=== PATIENT | male | born 1940 | race Caucasian/White ===

== ENCOUNTER 2023-01-14 08:02 | Inpatient (IN) | payer MEDICARE ==
[2023-01-14] VITALS (7 sets, daily range): BP systolic 117–139; BP diastolic 68–89; PULSE 70–84; RESP 16–20; TEMP 98–99.1; O2SAT 96–99
[~2023-01-14] VITALS: Ht 180.3 cm; Wt 78.5 kg
[2023-01-14] MEDS: FENTANYL CITRATE/PF 100MCG/2 ML INJ IV PRN ×2 (08:27→11:20)
[2023-01-14] MEDS ORDERED: DONNATAL/LIDOCAINE/MAALOX 30 ML SUSP PO STA (08:30)
[2023-01-14 08:32] LABS: BASOPHILS % 0.4 % (0.0-1.0); EOSINOPHILS # (AUTO) 0.1 (0.0-0.4); EOSINOPHILS % 0.9 % (0.0-6.0); HEMATOCRIT 42.4 % (38.2-49.6); HEMOGLOBIN 14.6 g/dL (14.0-18.0); LYMPHOCYTES % 12.5 % (18.0-39.1); MEAN CORPUSCULAR HEMOGLOBIN 32.2 pg (28-32); MEAN CORPUSCULAR HGB CONC 34.4 g/dL (31-35); MEAN CORPUSCULAR VOLUME 93.6 fL (81-99); MONOCYTES # (AUTO) 0.4 (0.2-0.8); MONOCYTES % 5.3 % (4.4-11.3); NEUTROPHILS # (AUTO) 6.3 (2.1-6.9); NEUTROPHILS % 80.8 % (38.7-80.0); PLATELET COUNT 147 x10e3/uL (140-360); RED BLOOD COUNT 4.53 x10e6/uL (4.3-5.7); RED CELL DISTRIBUTION WIDTH 12.7 % (11.7-14.4)
[2023-01-14 08:46] LABS: ALBUMIN 4.6 g/dL (3.5-5.0); ALBUMIN/GLOBULIN RATIO 1.4 (0.8-2.0); ANION GAP 13.7 mmol/L (8-16); CALCIUM 10.5 mg/dL (8.4-10.2); CREATININE, SERUM 0.88 mg/dL (0.72-1.25); POTASSIUM 3.7 mmol/L (3.5-5.1)
[2023-01-14] MEDS ORDERED: IOPAMIDOL 370 MG/ML 100 ML INFUS..BTL INJ ONE (08:58)
[2023-01-14] MEDS ORDERED: LIDOCAINE VISC 2% SOLN 15 ML UDC ONE (09:34)
[2023-01-14] MEDS ORDERED: BELLADONNA ALK/PHENOBARBITAL 5 ML UDC ONE (09:34)
[2023-01-14] MEDS ORDERED: MAGNESIUM/ALUMINUM/SIMETHICONE 30 ML UDC ONE (09:34)
[2023-01-14] MEDS ORDERED: ASPIRIN 81 MG CHEW TAB PO ONE (10:30)
[2023-01-14] MEDS ORDERED: METRONIDAZOLE 750MG/NS 150ML 150 ML IV ONE (10:30)
[2023-01-14] MEDS: SODIUM CHLORIDE 0.9% 1000ML 1,000 ML IV SCH ×2 (10:46→16:46)
[2023-01-14] MEDS ORDERED: CELEBREX200 MG PO (10:56)
[2023-01-14] MEDS ORDERED: NAMENDA5 MG PO (10:57)
[2023-01-14] MEDS ORDERED: OMEPRAZOLE40 MG PO (10:59)
[2023-01-14] MEDS ORDERED: WARFARIN SODIUM5 MG PO (11:00)
[2023-01-14] MEDS ORDERED: TRIAMTERENE-HCTZ1 EA PO (11:01)
[2023-01-14] MEDS ORDERED: FLOMAX0.4 MG PO (11:02)
[2023-01-14 11:13] LABS: CREATINE KINASE MB 3.7 ng/mL (0-5.0)
[2023-01-14 11:17] LABS: INR 1.8; PROTHROMBIN TIME 21.4 seconds (11.9-14.5)
[2023-01-14] MEDS: ONDANSETRON HCL INJ 2MG/ML 2ML 2 MG/ML VIAL IV PRN ×2 (14:01→22:08)
[2023-01-14] MEDS: Morphine 4mg INJECTION 4 MG/ML INJ IV PRN ×3 (14:01→22:08)
[2023-01-15] VITALS (10 sets, daily range): BP systolic 112–142; BP diastolic 60–92; PULSE 66–83; RESP 18–21; TEMP 97.9–100.9; O2SAT 93–99
[2023-01-15] MEDS: SODIUM CHLORIDE 0.9% 1000ML 1,000 ML IV SCH ×3 (00:26→16:45)
[2023-01-15 05:47] LABS: BASOPHILS % 0.1 % (0.0-1.0); HEMATOCRIT 37.9 % (38.2-49.6); HEMOGLOBIN 13.3 g/dL (14.0-18.0); LYMPHOCYTES # (AUTO) 0.7 (1.0-3.2); LYMPHOCYTES % 6.2 % (18.0-39.1); MEAN CORPUSCULAR HEMOGLOBIN 32.4 pg (28-32); MEAN CORPUSCULAR HGB CONC 35.1 g/dL (31-35); MEAN CORPUSCULAR VOLUME 92.2 fL (81-99); MONOCYTES # (AUTO) 0.9 (0.2-0.8); MONOCYTES % 7.7 % (4.4-11.3); NEUTROPHILS # (AUTO) 10.1 (2.1-6.9); NEUTROPHILS % 85.7 % (38.7-80.0); PLATELET COUNT 99 x10e3/uL (140-360); RED BLOOD COUNT 4.11 x10e6/uL (4.3-5.7); RED CELL DISTRIBUTION WIDTH 12.5 % (11.7-14.4)
[2023-01-15 05:49] LABS: ANION GAP 11.1 mmol/L (8-16); CALCIUM 9.3 mg/dL (8.4-10.2); CREATININE, SERUM 0.73 mg/dL (0.72-1.25); POTASSIUM 4.1 mmol/L (3.5-5.1)
[2023-01-15 06:26] LABS: ALBUMIN 3.5 g/dL (3.5-5.0)
[2023-01-15 06:45] LABS: CREATINE KINASE MB 1.1 ng/mL (0-5.0)
[2023-01-15 07:56] LABS: INR 2.76; PROTHROMBIN TIME 29.6 seconds (11.9-14.5)
[2023-01-15] MEDS: TAMSULOSIN HCL 0.4 MG CAP PO SCH (09:05)
[2023-01-15] MEDS: MEMANTINE 10 MG TAB PO SCH (09:06)
[2023-01-15] MEDS: PANTOPRAZOLE SOD 40 MG TABEC PO SCH (09:06)
[2023-01-15] MEDS ORDERED: PHYTONADIONE 10 MG/ML AMP SQ ONE (09:15)
[2023-01-15] MEDS: Morphine 4mg INJECTION 4 MG/ML INJ IV PRN (13:37)
[2023-01-15] MEDS ORDERED: SODIUM CHLORIDE 0.9% 250ML 250 ML ONE (17:17)
[2023-01-16] VITALS (10 sets, daily range): BP systolic 126–164; BP diastolic 67–86; PULSE 61–96; RESP 18–21; TEMP 97.2–99.2; O2SAT 92–99
[2023-01-16] MEDS: SODIUM CHLORIDE 0.9% 1000ML 1,000 ML IV SCH ×2 (04:54→16:03)
[2023-01-16] MEDS: Morphine 4mg INJECTION 4 MG/ML INJ IV PRN ×2 (04:59→15:40)
[2023-01-16 06:00] LABS: BASOPHILS % 0.2 % (0.0-1.0); EOSINOPHILS % 0.1 % (0.0-6.0); HEMATOCRIT 36.3 % (38.2-49.6); HEMOGLOBIN 12.3 g/dL (14.0-18.0); LYMPHOCYTES # (AUTO) 0.9 (1.0-3.2); LYMPHOCYTES % 9.7 % (18.0-39.1); MEAN CORPUSCULAR HGB CONC 33.9 g/dL (31-35); MEAN CORPUSCULAR VOLUME 94.5 fL (81-99); MONOCYTES # (AUTO) 0.9 (0.2-0.8); MONOCYTES % 9.3 % (4.4-11.3); NEUTROPHILS # (AUTO) 7.7 (2.1-6.9); NEUTROPHILS % 80.2 % (38.7-80.0); PLATELET COUNT 110 x10e3/uL (140-360); RED BLOOD COUNT 3.84 x10e6/uL (4.3-5.7); RED CELL DISTRIBUTION WIDTH 12.7 % (11.7-14.4)
[2023-01-16 06:02] LABS: INR 1.57; PROTHROMBIN TIME 19.3 seconds (11.9-14.5)
[2023-01-16 06:17] LABS: CALCIUM 9.3 mg/dL (8.4-10.2); CREATININE, SERUM 0.73 mg/dL (0.72-1.25)
[2023-01-16] MEDS: MEMANTINE 10 MG TAB PO SCH ×2 (08:54→15:39)
[2023-01-16] MEDS: TAMSULOSIN HCL 0.4 MG CAP PO SCH ×2 (08:55→15:39)
[2023-01-16] MEDS: PANTOPRAZOLE SOD 40 MG TABEC PO SCH ×2 (08:55→15:39)
[2023-01-16] MEDS ORDERED: ACETAMINOPHEN 1000 MG/100 ML 0 ML IV ONE (10:30)
[2023-01-16] MEDS ORDERED: BUPIVACAINE 0.25% 30ML SDV ONE (11:50)
[2023-01-16] MEDS ORDERED: FENTANYL CITRATE/PF 100MCG/2 ML INJ ONE (12:20)
[2023-01-16] MEDS ORDERED: ONDANSETRON HCL INJ 2MG/ML 2ML 2 MG/ML VIAL IV PRN (13:00)
[2023-01-16] MEDS ORDERED: SEVOFLURANE INHAL SOLN 250 ML PEN BTL ONE (13:53)
[2023-01-16] MEDS ORDERED: POVIDONE IODINE 0.05% 0.05 % ML PO ONE (13:53)
[2023-01-16] MEDS ORDERED: ROCURONIUM BROMIDE 10 MG/ML 5ML VIAL IV ONE (13:53)
[2023-01-16] MEDS ORDERED: PROPOFOL IV EMULSION 10 MG/ML 20 ML VIAL ONE (13:53)
[2023-01-16] MEDS ORDERED: LABETALOL HCL 5 MG/ML 20ML VIAL ONE (13:53)
[2023-01-16] MEDS ORDERED: ONDANSETRON HCL INJ 2MG/ML 2ML 2 MG/ML VIAL ONE (13:53)
[2023-01-16] MEDS ORDERED: LIDOCAINE HCL 2% LOCAL INJ 5 ML SDV VIAL INJ ONE (13:53)
[2023-01-16] MEDS ORDERED: DEXAMETHASONE SOD PHOS INJ 4 MG/ML SDV ONE (13:53)
[2023-01-17] VITALS (10 sets, daily range): BP systolic 116–147; BP diastolic 54–81; PULSE 65–85; RESP 17–22; TEMP 97.8–99.5; O2SAT 91–98
[2023-01-17] MEDS: SODIUM CHLORIDE 0.9% 1000ML 1,000 ML IV SCH ×2 (02:44→21:04)
[2023-01-17 05:02] LABS: BASOPHILS % 0.1 % (0.0-1.0); HEMATOCRIT 32.9 % (38.2-49.6); HEMOGLOBIN 11.2 g/dL (14.0-18.0); LYMPHOCYTES # (AUTO) 0.8 (1.0-3.2); LYMPHOCYTES % 7.6 % (18.0-39.1); MEAN CORPUSCULAR HEMOGLOBIN 32.3 pg (28-32); MEAN CORPUSCULAR VOLUME 94.8 fL (81-99); MONOCYTES % 10.4 % (4.4-11.3); NEUTROPHILS # (AUTO) 8.2 (2.1-6.9); NEUTROPHILS % 81.3 % (38.7-80.0); PLATELET COUNT 91 x10e3/uL (140-360); RED BLOOD COUNT 3.47 x10e6/uL (4.3-5.7); RED CELL DISTRIBUTION WIDTH 12.5 % (11.7-14.4)
[2023-01-17 05:29] LABS: ALBUMIN 2.8 g/dL (3.5-5.0); ANION GAP 9.4 mmol/L (8-16); CALCIUM 8.8 mg/dL (8.4-10.2); CREATININE, SERUM 0.74 mg/dL (0.72-1.25); POTASSIUM 3.4 mmol/L (3.5-5.1)
[2023-01-17] MEDS: PANTOPRAZOLE SOD 40 MG TABEC PO SCH (09:35)
[2023-01-17] MEDS: MEMANTINE 10 MG TAB PO SCH (09:35)
[2023-01-17] MEDS: TAMSULOSIN HCL 0.4 MG CAP PO SCH (09:37)
[2023-01-17] MEDS ORDERED: ONDANSETRON HCL 4 MG ORAL DISINTEGRATING TAB PO PRN (11:15)
[2023-01-17] MEDS ORDERED: POTASSIUM CHLORIDE 20 MEQ TAB CR PO ONE ×2 (12:00→16:30)
[2023-01-17] MEDS: TRAMADOL HCL 50 MG TAB PO PRN (16:26)
[2023-01-18] VITALS (10 sets, daily range): BP systolic 131–136; BP diastolic 63–74; PULSE 59–83; RESP 16–20; TEMP 97.4–99; O2SAT 92–96
[2023-01-18] MEDS: SODIUM CHLORIDE 0.9% 1000ML 1,000 ML IV SCH ×2 (05:18→13:17)
[2023-01-18 05:44] LABS: HEMATOCRIT 37.3 % (38.2-49.6); HEMOGLOBIN 11.9 g/dL (14.0-18.0); MEAN CORPUSCULAR HEMOGLOBIN 32.4 pg (28-32); MEAN CORPUSCULAR HGB CONC 31.9 g/dL (31-35); MEAN CORPUSCULAR VOLUME 101.6 fL (81-99); PLATELET COUNT 115 x10e3/uL (140-360); RED BLOOD COUNT 3.67 x10e6/uL (4.3-5.7); RED CELL DISTRIBUTION WIDTH 12.7 % (11.7-14.4)
[2023-01-18 06:08] LABS: ALBUMIN 2.8 g/dL (3.5-5.0); ALBUMIN/GLOBULIN RATIO 0.9 (0.8-2.0); ANION GAP 10.4 mmol/L (8-16); CALCIUM 8.8 mg/dL (8.4-10.2); CREATININE, SERUM 0.65 mg/dL (0.72-1.25); POTASSIUM 3.4 mmol/L (3.5-5.1)
[2023-01-18 07:10] LABS: EOSINOPHILS % (MANUAL) 1 % (0-7); LYMPHOCYTES % (MANUAL) 15 % (19-48); MONOCYTES % (MANUAL) 6 % (3.4-9.0); NEUTROPHILS % (MANUAL) 78 % (40-74)
[2023-01-18 07:11] LABS: PLATELET ESTIMATE SLIGHTLY DECREASED; PLATELET MORPHOLOGY COMMENT NORMAL; RBC MORPHOLOGY COMMENT NORMAL
[2023-01-18] MEDS ORDERED: POTASSIUM CHLORIDE 20 MEQ TAB CR PO ONE (09:45)
[2023-01-18] MEDS: MEMANTINE 10 MG TAB PO SCH (09:46)
[2023-01-18] MEDS: PANTOPRAZOLE SOD 40 MG TABEC PO SCH (09:46)
[2023-01-18] MEDS: TAMSULOSIN HCL 0.4 MG CAP PO SCH (09:46)
[2023-01-18] MEDS: TRAMADOL HCL 50 MG TAB PO PRN (15:03)
[2023-01-19 00:56] VITALS: BP 144/64; PULSE 90; RESP 18; TEMP 97.6; O2SAT 93
[2023-01-19] MEDS: SODIUM CHLORIDE 0.9% 1000ML 1,000 ML IV SCH ×2 (01:31→13:35)
[2023-01-19 05:26] VITALS: BP 158/79; PULSE 89; RESP 21; TEMP 97.2; O2SAT 93
[2023-01-19] MEDS ORDERED: CEPHALEXIN500 MG PO (06:20)
[2023-01-19] MEDS ORDERED: LOPRESSOR25 MG PO (06:20)
[2023-01-19] MEDS ORDERED: ACETAMINOPHEN650 M2 PO (06:20)
[2023-01-19] MEDS ORDERED: ONDANSETRON ODT4 MG PO (06:20)
[2023-01-19] MEDS ORDERED: SENOKOT8.6 MG PO (06:21)
[2023-01-19] MEDS ORDERED: METRONIDAZOLE500 MG PO (06:24)
[2023-01-19] MEDS ORDERED: POTASSIUM CHLORIDE 20 MEQ TAB CR PO ONE (06:50)
[2023-01-19 08:48] VITALS: BP 146/80; PULSE 90; RESP 20; TEMP 99.1; O2SAT 95
[2023-01-19] MEDS: PANTOPRAZOLE SOD 40 MG TABEC PO SCH (08:52)
[2023-01-19] MEDS: MEMANTINE 10 MG TAB PO SCH (08:52)
[2023-01-19] MEDS: TAMSULOSIN HCL 0.4 MG CAP PO SCH (08:52)
[2023-01-19 11:35] VITALS: PULSE 90; RESP 18; O2SAT 95
[2023-01-19 12:48] VITALS: BP 136/70; PULSE 73; RESP 16; TEMP 99.6; O2SAT 95
== END 2023-01-19 16:20 | disposition home or self-care (01) | DRG 418 ==
LOC: ER 08:10 → ERHOLD 10:18 → MED/SURG2 15:10
PROVIDERS: ADMIT Internal Medicine; ATTEND Internal Medicine
PROC: 0FT44ZZ Resection of Gallbladder, Percutaneous Endoscopic Approach (ICD-10-PCS; principal; 2023-01-16 11:57)
DX: K80.00 Calculus of gallbladder with acute cholecystitis without obstruction (principal); I48.20 Chronic atrial fibrillation, unspecified; E83.52 Hypercalcemia; E86.0 Dehydration; K40.90 Unilateral inguinal hernia, without obstruction or gangrene, not specified as recurrent; D69.6 Thrombocytopenia, unspecified; E87.6 Hypokalemia; G20 Parkinson's disease; Z79.01 Long term (current) use of anticoagulants; K21.9 Gastro-esophageal reflux disease without esophagitis; N40.0 Benign prostatic hyperplasia without lower urinary tract symptoms; F39 Unspecified mood [affective] disorder
CPT/HCPCS: 36415; 71045; 74177; 74181; 76705; 80048; 80053; 80076; 82550; 82553; 83605; 83690; 84484; 85007; 85025; 85027; 85610; 86900; 87040; 88304; 93005; 94799; 99284; J0696; J1100; J2001; J2270; J2405; J3430; J7030; J7050; P9017; Q9967